=== PATIENT | male | born 1975 | race Two or more races ===

== ENCOUNTER 2018-08-07 23:49 | Emergency (ER) | payer OTHER ==
[~2018-08-07] VITALS: Ht 170.2 cm; Wt 97.5 kg
[2018-08-08 01:14] VITALS: BP 116/76
[2018-08-08] MEDS ORDERED: HYDROcodone-ACET 5/325MG TAB PO ONE (01:30)
[2018-08-08] MEDS ORDERED: predniSONE 20 MG TAB PO ONE (01:30)
== END 2018-08-08 02:26 | disposition home or self-care (01) ==
LOC: ER 08-08 00:02
DX: S66.912A Strain of unspecified muscle, fascia and tendon at wrist and hand level, left hand, initial encounter (principal); M25.832 Other specified joint disorders, left wrist; X50.1XXA Overexertion from prolonged static or awkward postures, initial encounter; Y93.89 Activity, other specified; Y99.0 Civilian activity done for income or pay; Y92.69 Other specified industrial and construction area as the place of occurrence of the external cause
CPT/HCPCS: 73110; 99283; J7512